=== PATIENT | male | born 1990 | race Caucasian/White ===

== ENCOUNTER 2025-02-26 00:19 | Outpatient (CLI) | payer OTHER, SELFPAY | END 2025-02-26 00:20 | disposition home or self-care (01) | LOC: AMB 02-27 12:03 | PROVIDERS: Visit Provider Internal Medicine | DX: F10.129 Alcohol abuse with intoxication, unspecified (principal); R55 Syncope and collapse; R11.2 Nausea with vomiting, unspecified | CPT/HCPCS: A0425; A0427 ==